=== PATIENT | male | born 1935 | race Caucasian/White ===

== ENCOUNTER 2017-01-28 04:00 | Inpatient (IN) | payer MEDICARE, BC ==
[~2017-01-28] VITALS: Ht 167.6 cm; Wt 63.0 kg
--- NOTE | 2017-01-28 04:27 | NUR ---
PT UNABLE TO GIVE ME A LIST OF MEDS.WILL HAVE SPOUSE BRING IN MEDS
[2017-01-28 05:11] LABS: BASOPHILS % (AUTO) 0.2 % (0.0-2.0); EOSINOPHILS # (AUTO) 0.2 K/uL (0.0-0.7); EOSINOPHILS % (AUTO) 1.7 % (0.0-7.0); HEMATOCRIT 32.3 % (40-50); HEMOGLOBIN 10.5 G/DL (14.0-18.0); LYMPHOCYTES # (AUTO) 1.2 K/UL (0.8-4.8); MEAN CORPUSCULAR HEMOGLOBIN 30.9 UUG (27.0-31.0); MEAN CORPUSCULAR HGB CONC 33 g/dL (32.0-37.0); MEAN CORPUSCULAR VOLUME 95.3 FL (82.0-92.0); MONOCYTES # (AUTO) 0.6 K/UL (0.1-1.30); MONOCYTES % (AUTO) 4.3 % (0.0-11.0); NEUTROPHILS # (AUTO) 12.5 K/UL (1.8-8.9); NEUTROPHILS % (AUTO) 85.8 % (38.5-71.5); PLATELET COUNT (AUTO) 297 K/UL (150-450); RED BLOOD CELL COUNT(AUTO) 3.38 MIL/UL (4.7-6.1); WHITE BLOOD COUNT (AUTO) 14.5 K/UL (4.0-11.2)
[2017-01-28] MEDS ORDERED: MISCELLANEOUS MED XX ONE (05:15)
[2017-01-28] MEDS ORDERED: INSULIN (05:18)
[2017-01-28] MEDS ORDERED: ELAQUIS (05:18)
[2017-01-28] MEDS ORDERED: NORVASC (05:18)
[2017-01-28] MEDS ORDERED: CLONIDINE (05:18)
[2017-01-28] MEDS ORDERED: LIPITOR (05:18)
[2017-01-28 05:21] LABS: CARBON DIOXIDE 30 mmol/L (21-32); CHLORIDE 96 mmol/L (98-107); GLUCOSE 148 mg/dL (74-106); POTASSIUM 4.4 mmol/L (3.5-5.1); UREA NITROGEN, BLOOD 61 mg/dL (7-18)
[2017-01-28 05:23] LABS: MAGNESIUM 1.9 mg/dL (1.8-2.4); PHOSPHOROUS 7.9 mg/dL (2.5-4.9)
[2017-01-28 05:30] LABS: CREATININE 8.7 mg/dL (0.6-1.3)
[2017-01-28 05:34] LABS: THYROID STIMULATING HORMONE 0.972 mIU/mL (0.358-3.740)
[2017-01-28 05:37] LABS: ALANINE AMINOTRANSFERASE 19 U/L (16-63); ALKALINE PHOSPHATASE 64 U/L (50-136); ASPARTATE AMINOTRANSFERASE 26 U/L (15-37); BILIRUBIN,DIRECT 0.2 mg/dL (0.0-0.2); BILIRUBIN,TOTAL 0.6 mg/dL (0.2-1.0); TOTAL PROTEIN, SERUM 6.7 g/dL (6.4-8.2)
[2017-01-28 05:45] LABS: ETHANOL < 3 MG/DL (0-0)
--- NOTE | 2017-01-28 05:51 | NUR ---
Spoke to Suzanna in [facility]. Awaiting call back
--- NOTE | 2017-01-28 06:14 | NUR ---
pharmacy note; prior to starting the 1gm vancomycin ivpb I asked dr harris if bld cx's were not ordered, dr harris staed it was fie to administer vancomycin.
[2017-01-28] MEDS ORDERED: ACETAMINOPHEN 325 MG TABLET PO PRN (06:15)
[2017-01-28] MEDS ORDERED: HYDROCODONE/APAP 5-325MG TABLET PO PRN (06:15)
[2017-01-28] MEDS ORDERED: VANCOMYCIN IV 1,000 MG in IV DEXTROSE 5% 250 ML IV ONE (06:15)
[2017-01-28] MEDS ORDERED: MAGNESIUM HYDROXIDE 30 ML LIQUID UDC PO PRN (06:15)
[2017-01-28] MEDS ORDERED: ONDANSETRON 4 MG/2 ML VIAL IV PRN (06:15)
[2017-01-28] MEDS ORDERED: Z GUARD REMEDY PASTE 57 GM TUBE TOP PRN (06:15)
[2017-01-28] MEDS ORDERED: VANCOMYCIN IV 200 ML ONE (06:16)
--- NOTE | 2017-01-28 06:46 | NUR ---
Report given @ 0616 to Yessenia ENCINAS on telemetry. Called for bed @ 0600, room assignment is 209
--- NOTE | 2017-01-28 06:48 | NUR ---
Patient in bed, no acute distress at this time.
--- NOTE | 2017-01-28 07:09 | NUR ---
Pt. admitted to Telemetry , under care of Dr. Petty. Dx: Altered mental status, hypoglycemia Belongs List completed
[2017-01-28 07:15] VITALS: BP 133/57
[2017-01-28 07:30] VITALS: BP 133/57
--- NOTE | 2017-01-28 07:30 | NUR ---
RECEIVED ON BED HOB UP. SLEEPY BUT AROUSABLE. DENIES ANY DISCOMFORT VERBALIZED FEELS BETTER. MADE COMFORTABLE.
--- NOTE | 2017-01-28 07:53 | NUR ---
BLOOD SUGAR CHECK 176. NO ACTION NEEDED.
--- NOTE | 2017-01-28 09:19 | NUR ---
RESTING AFTER BREAKFAST.HOB UP, COMFORTABLE
[2017-01-28] MEDS: CEFTRIAXONE 1 G in IV DEXTROSE 5% 50 ML IV SCH (10:04)
[2017-01-28] MEDS: AZITHROMYCIN IV 250 MG in IV DEXTROSE 5% 250 ML IV SCH (10:44)
--- NOTE | 2017-01-28 10:57 | NUR ---
Clinical Pharmacy Note: Vancomycin Pharmacy to Dose Objective: To start vancomycin in this 82 y/o gentleman for indication of cellulitis Subjective: height 167 cm weight 63 kg BUN 61 Scr 8.7 (HD) Wbc 14.5 temp 98.7 1gm given in ER 01/28 @ 0600 Assessment/Plan Patient on HD, thus will dose based on pre-HD level. One dose given this early am. No dose will be given for today. Will follow Hd schedule and dose per HD protocol as required. Will follow
[2017-01-28 12:03] VITALS: BP 127/42
--- NOTE | 2017-01-28 12:49 | NUR ---
in touch with spouse, glad of call. denies distress, resting well, feeling better but needed to sleep prn
--- NOTE | 2017-01-28 15:06 | NUR ---
at bedside, supportive of patient care . aware plan of care antibiotics and agreed. brought in hearing aidx 2 , batteries and case, left at bedside.
[2017-01-28 16:01] VITALS: BP 122/41
--- NOTE | 2017-01-28 16:13 | NUR ---
heplock accidentally pulled out. restarted of left forearm as ordered, tolerated well
--- NOTE | 2017-01-28 18:14 | NUR ---
comfortable, denies discomfort. appetite good, calls for assistance for safety checks. voiding well . afebrile
--- NOTE | 2017-01-28 19:30 | NUR ---
Pt in room a/o x 4 in no acute distress. Able to follow simple commands without difficulty. No pain or discomfort at this time. no increased redness or pain to left forearm. Call light placed within reach. Continue to monitor.
[2017-01-28 20:08] VITALS: BP 131/43
[2017-01-29] VITALS: BP 135/58
[2017-01-29 04:00] VITALS: BP 135/57
[2017-01-29 06:30] LABS: BASOPHILS # (AUTO) 0.1 K/uL (0.0-8.0); BASOPHILS % (AUTO) 0.5 % (0.0-2.0); EOSINOPHILS # (AUTO) 0.3 K/uL (0.0-0.7); HEMATOCRIT 27.3 % (36.7-47.1); HEMOGLOBIN 9.4 g/dL (12.5-16.3); LYMPHOCYTES # (AUTO) 2.1 K/uL (20.0-40.0); LYMPHOCYTES % (AUTO) 19.9 % (20.5-51.5); MEAN CORPUSCULAR HEMOGLOBIN 32.8 uug (23.8-33.4); MEAN CORPUSCULAR HGB CONC 35 g/dL (32.5-36.3); MEAN CORPUSCULAR VOLUME 94.7 fL (73.0-96.2); MONOCYTES % (AUTO) 9.7 % (0.0-11.0); NEUTROPHILS # (AUTO) 6.9 K/uL (1.8-8.9); NEUTROPHILS % (AUTO) 66.9 % (38.5-71.5); PLATELET COUNT (AUTO) 247 K/uL (152-348); RED BLOOD CELL COUNT(AUTO) 2.88 MIL/uL (4.06-5.63); WHITE BLOOD COUNT (AUTO) 10.4 K/uL (3.6-10.2)
[2017-01-29 06:44] LABS: ALANINE AMINOTRANSFERASE 16 U/L (16-63); ALKALINE PHOSPHATASE 51 U/L (50-136); ASPARTATE AMINOTRANSFERASE 16 U/L (15-37); BILIRUBIN,TOTAL 0.6 mg/dL (0.2-1.0); CARBON DIOXIDE 26 mmol/L (21-32); CHLORIDE 96 mmol/L (98-107); CHOLESTEROL 118 mg/dL (<200); GLUCOSE 118 mg/dL (74-106); HDL CHOLESTEROL 67 mg/dL (40-60); MAGNESIUM 1.9 mg/dL (1.8-2.4); POTASSIUM 5.1 mmol/L (3.5-5.1); TOTAL PROTEIN, SERUM 5.9 g/dL (6.4-8.2); TRIGLYCERIDES 116 MG/DL (30-150); UREA NITROGEN, BLOOD 71 mg/dL (7-18)
[2017-01-29 06:47] LABS: CREATININE 9.8 mg/dL (0.6-1.3)
[2017-01-29 06:48] LABS: PHOSPHOROUS 8.4 mg/dL (2.5-4.9)
--- NOTE | 2017-01-29 06:54 | NUR ---
Labs reported to Dr Petty BUN 71. Cr 9.8, Phos 8.4. Pt in no acute distress. Continue to monitor.
[2017-01-29] MEDS ORDERED: PANTOPRAZOLE SODIUM 40 MG TABLET.DR PO SCH (07:00)
[2017-01-29] MEDS ORDERED: EPOETIN ALFA 10,000 UNITS/ML VIAL IVP ONE (08:45)
[2017-01-29] MEDS: CEFTRIAXONE 1 G in IV DEXTROSE 5% 50 ML IV SCH (09:15)
[2017-01-29] MEDS: AZITHROMYCIN IV 250 MG in IV DEXTROSE 5% 250 ML IV SCH (10:15)
[2017-01-29 11:14] VITALS: BP 118/50
[2017-01-29] MEDS ORDERED: CALCIUM ACETATE 667 MG CAPSULE PO SCH (12:00)
--- NOTE | 2017-01-29 15:20 | NUR ---
Clinical Pharmacy Note: Vancomycin Pharmacy to Dose Subjentive: To start vancomycin in this 82 y/o gentleman for indication of cellulitis Objective: height 167 cm weight 63 kg BUN 71 Scr 9.8 (HD) Wbc 10.4 temp 98.6 1gm given in ER 01/28 @ 0600 patient had HD today; pre-HD level 12.8 Assessment/Plan: Patient had HD today; pre-HD level 12.8; will give another dose of Vancomycin 1 gm x 1. Will follow Hd schedule and dose per HD protocol as required. Will follow
[2017-01-29 15:21] VITALS: BP 126/53
[2017-01-29] MEDS ORDERED: VANCOMYCIN IV 1 G in PREMIXED 0 EACH IV ONE (15:30)
[2017-01-29] MEDS ORDERED: LEVO500T2 PO (17:02)
[2017-01-29] MEDS ORDERED: ACID1TAB4 PO (17:02)
[2017-01-29] MEDS ORDERED: DOXY100C41 PO (17:02)
--- NOTE | 2017-01-29 19:00 | NUR ---
PT. HAD DIALYSIS TODAY. VERY ANXIOUS TO GO HOME. DENIES PAIN DIZZINESS, STATES FEELS OK. IV'S COMPLETED ORDERED. HOME INSTRUCTIONS REVIEWED PT. INSTRUCTED TO FOLLOW-UP WITH DR. PATEL PT. STATES WILL CALL FIRST THING IN THE MORNING. GREGORIO CATHETER IN PLACE RIGHT CHEST CAPPED AND DRESSED. BRUIT NOTED TO RIGHT ARM FISTULA. BRUIT NOTED TO LEFT UPPER ARM SHUNT, REDNESS NOTED ALONG SHUNT INCISION. DISCHARGED TO BY RN
== END 2017-01-29 19:30 | disposition home health service (06) | DRG 637 ==
LOC: ER 04:00 → TELE 06:50
PROVIDERS: ADMIT Family Medicine; ATTEND Family Medicine
PROC: 5A1D70Z Performance of Urinary Filtration, Intermittent, Less than 6 Hours Per Day (ICD-10-PCS; principal; 2017-01-29)
DX: E11.649 Type 2 diabetes mellitus with hypoglycemia without coma (principal); G93.41 Metabolic encephalopathy; I21.A1 Myocardial infarction type 2; E43 Unspecified severe protein-calorie malnutrition; J18.9 Pneumonia, unspecified organism; I12.0 Hypertensive chronic kidney disease with stage 5 chronic kidney disease or end stage renal disease; E11.22 Type 2 diabetes mellitus with diabetic chronic kidney disease; N18.6 End stage renal disease; T82.7XXA Infection and inflammatory reaction due to other cardiac and vascular devices, implants and grafts, initial encounter; L03.114 Cellulitis of left upper limb; D63.8 Anemia in other chronic diseases classified elsewhere; E78.5 Hyperlipidemia, unspecified; Z86.73 Personal history of transient ischemic attack (TIA), and cerebral infarction without residual deficits; Z99.2 Dependence on renal dialysis; Z79.4 Long term (current) use of insulin; Z88.2 Allergy status to sulfonamides; Y84.9 Medical procedure, unspecified as the cause of abnormal reaction of the patient, or of later complication, without mention of misadventure at the time of the procedure; Y92.009 Unspecified place in unspecified non-institutional (private) residence as the place of occurrence of the external cause; M50.30 Other cervical disc degeneration, unspecified cervical region; M85.80 Other specified disorders of bone density and structure, unspecified site; Z91.81 History of falling; I65.29 Occlusion and stenosis of unspecified carotid artery; Z68.22 Body mass index [BMI] 22.0-22.9, adult
CPT/HCPCS: 36415; 70030-TC; 70450; 71010; 72125; 83735; 84100; 84443; 85025; 85730; 87040; 90937; 93005; A4663; G0480; J0456; J0696; J0885; J3370; J7050; J7060